=== PATIENT | female | born 1980 | race Two or more races ===

== ENCOUNTER 2023-06-03 22:40 | Emergency (ER) | payer OTHER ==
[2023-06-03 22:50] VITALS: BP 154/102; PULSE 81; RESP 16; TEMP 97.9; BMI 24.6
[2023-06-03] MEDS ORDERED: LORazepam 0.5 MG TABLET ONE (23:54)
[2023-06-03] MEDS ORDERED: MAGNESIUM SULFATE IN WATER 2 GM/50 ML IVPB IVPB ONE (23:56)
[2023-06-04] MEDS: LORazepam 2 MG TABLET PO ONE (00:02)
[2023-06-04] MEDS: MAGNESIUM SULF 50% (8.12 MEQ/2 ML-1 GM VIAL) IVPB ONE (00:02)
[2023-06-04 01:12] LABS: BASO % 0.3 % (0-2.0); EOS % 1.9 % (0-4.5); HEMATOCRIT 36.3 % (32.4-45.2); HEMOGLOBIN 11.9 GM/dL (10.7-15.3); LYMPH % 43.3 % (8-40); MCH 24.8 pg (25.7-33.7); MCHC 32.9 g/dl (32.0-36.0); MEAN CELL VOLUME 75.3 fl (80-96); MEAN PLT VOLUME 8.3 fl (7.5-11.1); MONO % 8.8 % (3.8-10.2); NEUT % 45.7 % (42.8-82.8); PLATELET COUNT 339 10^3/uL (134-434); RBC 4.82 M/mm3 (3.60-5.2); RDW 12.6 % (11.6-15.6); WHITE BLOOD COUNT 6.1 K/mm3 (4.0-10.0)
[2023-06-04 01:27] LABS: POTASSIUM 3.6 mmol/L (3.5-5.1)
[2023-06-04 01:29] LABS: CALCIUM 9.5 mg/dL (8.5-10.1)
[2023-06-04 01:30] LABS: ALBUMIN 3.6 g/dl (3.4-5.0); BLOOD UREA NITROGEN 13.4 mg/dL (7-18)
[2023-06-04 01:33] LABS: CREATININE 0.8 mg/dL (0.55-1.3)
[2023-06-04 01:35] LABS: BILIRUBIN,TOTAL 0.2 mg/dL (0.2-1); TOT PROT 7.7 g/dl (6.4-8.2)
== END 2023-06-04 01:56 | disposition home or self-care (01) ==
LOC: FER 22:40
PROC: 3E033NZ Introduction of Analgesics, Hypnotics, Sedatives into Peripheral Vein, Percutaneous Approach (ICD-10-PCS; principal; 2023-06-04)
DX: M79.602 Pain in left arm (principal); R20.0 Anesthesia of skin; R07.9 Chest pain, unspecified; I10 Essential (primary) hypertension
CPT/HCPCS: 36415; 71046-TC-FY; 80053; 84484; 85025; 93005; 99285-25

== ENCOUNTER 2023-09-07 00:26 | Emergency (ER) | payer OTHER ==
[2023-09-07 00:41] VITALS: RESP 18; BMI 24.6
[2023-09-07 00:57] VITALS: BP 127/93; PULSE 80; TEMP 98.2
[2023-09-07 01:38] LABS: HEMATOCRIT 35.3 % (32.4-45.2); HEMOGLOBIN 11.6 GM/dL (10.7-15.3); MCH 24.7 pg (25.7-33.7); MCHC 32.8 g/dl (32.0-36.0); MEAN CELL VOLUME 75.3 fl (80-96); PLATELET COUNT 314 10^3/uL (134-434); RBC 4.69 M/mm3 (3.60-5.2); RDW 12.6 % (11.6-15.6)
[2023-09-07 02:53] LABS: CHLORIDE 99 mmol/L (98-107); POTASSIUM 3.4 mmol/L (3.5-5.1); SODIUM 136 mmol/L (136-145)
[2023-09-07 02:55] LABS: CALCIUM 8.8 mg/dL (8.5-10.1)
[2023-09-07 02:56] LABS: ALBUMIN 3.8 g/dl (3.4-5.0); ANION GAP 6 mmol/L (4-13); BLOOD UREA NITROGEN 11.4 mg/dL (7-18); CO2 32 mmol/L (21-32); GLUCOSE,RANDOM 63 mg/dL (74-106); MAGNESIUM 1.5 mg/dL (1.8-2.4)
[2023-09-07 02:58] LABS: PHOSPHOROUS 3.9 mg/dL (2.5-4.9)
[2023-09-07 02:59] LABS: CREATININE 0.7 mg/dL (0.55-1.3); SGOT/AST 15 U/L (15-37); SGPT/ALT 24 U/L (13-61)
[2023-09-07 03:00] LABS: BILIRUBIN,TOTAL 0.3 mg/dL (0.2-1); TOT PROT 7.6 g/dl (6.4-8.2)
[2023-09-07 03:02] LABS: ALK PHOS 66 U/L (45-117)
[2023-09-07] MEDS ORDERED: POTASSIUM CHLORIDE TABS 20 MEQ TABLET.ER (FP) PO ONE (03:16)
[2023-09-07] MEDS: POTASSIUM CHLORIDE TABS 20 MEQ TABLET.ER (FP) PO ONE (03:17)
== END 2023-09-07 03:15 | disposition home or self-care (01) ==
LOC: FER 00:26
DX: R07.89 Other chest pain (principal); R06.02 Shortness of breath; R20.2 Paresthesia of skin
CPT/HCPCS: 36415; 71045-TC-FY; 80053; 82550; 83735; 84100; 84484; 85027; 93005; 99285-25